=== PATIENT | female | born 1960 | race Caucasian/White ===

== ENCOUNTER 2018-03-13 07:08 | Emergency (ER) | payer OTHER ==
[~2018-03-13 07:08] MED LIST: ASPIRIN81 M4 PO; ATENOLOL25 M1 PO; ATORVASTATIN CA20 M1 PO; FOSAMAX70 M1 PO; MAALOX ADVANCE355 M2 PO; OMEGA 3-6-9 11200 MG PO; ONE-A-DAY ESSE1 EACH PO; PROTONIX40 M3 PO
--- NOTE | 2018-03-13 07:32 | ED CARDIAC/CP/PALPITATIONS ---
History of Present Illness General Chief Complaint: Chest Pain Stated Complaint: BIBA RT SIDED CHEST PAIN Source: patient Exam Limitations: no limitations Vital Signs & Intake/Output Vital Signs & Intake/Output Vital Signs Date Time Temp Pulse Resp B/P B/P Pulse O2 O2 Flow FiO2 Mean Ox Delivery Rate 03/13 1342 98.7 64 18 94/51 98 Room Air 03/13 0726 18.0 61 18 117/57 97 Room Air Allergies Coded Allergies: diltiazem (From CARDIZEM) (Severe, RASH 04/06/17) Reconcile Medications Alendronate Sodium (Fosamax) 70 MG TABLET 1 TAB PO QW osteoporosis (Reported) in the morning, at least 30 minutes before the first food, beverage, or medication of the day Aspirin (Aspirin*) 81 MG TAB.CHEW 1 TAB PO DAILY cad (Reported) Atenolol 25 MG TABLET 1 TAB PO DAILY svt (Reported) Atorvastatin Calcium 20 MG TABLET 1 TAB PO DAILY hyperlipidemia (Reported) Fish Oil/Borage/Flax/Om3,6,9#1 (Milligan 3-6-9 1,200 MG Softgel) 1,200 MG CAPSULE 1 CAP PO DAILY supplement (Reported) Multivitamin (One-A-Day Essential) 1 EACH TABLET 1 TAB PO DAILY vit supplement (Reported) Pantoprazole Sodium (Protonix) 40 MG TABLET. 1 TAB PO BID GERD Take 1 tab 30 min before breakfast and 1 tab 30 min before dinner.. Triage Note: PT BIBA FROM HOME S/P C/O RIGHT CP x2 DAYS. PT THOUGHT IT MAY HAVE BEEN HEART BURN DUE TO HX OF GERD. ALSO C/O NAUSEA. HAS NO HX OF WA BUT DOES HAVE A HX OF SVT. HAD 1 NITRO, 4 BABY ASA, AND ZOFRAN ON ROUTE. AT BEDSIDE. Triage Nurses Notes Reviewed? yes HPI: Patient presents for evaluation of right-sided chest pain that began gradually 2 days ago. Patient states that the pain has been constant since onset and does not change with palpation and deep inspiration coughing or movement. The patient denies radiation of pain likewise denies diaphoresis or dyspnea. She denies any prior episodes of this nature. She states she was admitted however in February of last year for chest pain syndrome. No cause was elucidated at that time (patient had a stress test and echocardiogram). Pain is described as a nagging constant achy pain. The patient is feeling better after an aspirin and sublingual nitroglycerin prehospital. She states her pain is now minimal. She has a three quarters pack per day smoker but denies alcohol or drug use. Past history is pertinent for SVT. Past History Travel History Traveled to [place] past 21 day No Medical History Any Pertinent Medical History? 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 No Review of Systems Review of Systems Constitutional: Reports: no symptoms. EENTM: Reports: no symptoms. Respiratory: Reports: no symptoms. Cardiovascular: Reports: chest pain. GI: Reports: no symptoms. Genitourinary: Reports: no symptoms. Musculoskeletal: Reports: no symptoms. Skin: Reports: no symptoms. Neurological/Psychological: Reports: no symptoms. Hematologic/Endocrine: Reports: no symptoms. Immunologic/Allergic: Reports: no symptoms. All Other Systems: Reviewed and Negative Physical Exam Physical Exam Cardiovascular: see below Comments: Gen.: Well-nourished, well-developed, no acute respiratory distress. Head: Normocephalic, atraumatic. Eyes: Normal inspection bilaterally Ears: Normal inspection bilaterally Nose: Normal inspection Throat/mouth : Moist mucosa Neck: Supple, full range of motion, no goiter Heart: Regular rate and rhythm, no murmurs rubs or gallops Lungs: Clear to auscultation bilaterally with normal air entry Chest: Nontender Back: Normal range of motion Abdomen: Soft, mild epigastric tenderness that does not reproduce the pain of the chief complaint, nondistended, normal bowel sounds Extremities: Normal range of motion grossly, equal radial pulses, no cyanosis clubbing or edema Neurologic: Cranial nerves grossly intact, speech is clear Skin: warm and dry, no rashes in area of pain Psychiatric: Calm, cooperative, no apparent delusions or hallucinations Core Measures ACS in differential dx? No CVA/TIA Diagnosis No Sepsis Present: No Sepsis Focused Exam Completed? No Progress Differential Diagnosis: AMI, musculoskeletal pain, pneumonia, pneumothorax, pulmonary embolism, unstable angina, SHINGLES Plan of Care: Orders Procedure Date/time Status TROPONIN LEVEL 03/13 1130 Complete EKG 03/13 1130 Active Add-on Test (ER Only) 03/13 0744 Active XRY-CHEST XRAY, TWO VIEWS 03/13 729 Active Telemetry/Community Health Advisor 03/13 729 Active TROPONIN LEVEL 03/13 07 Complete MAGNESIUM 03/13 729 Complete COMPREHENSIVE METABOLIC PANEL 03/13 729 Complete CBC WITHOUT DIFFERENTIAL 03/13 729 Complete EKG 03/13 07 Active Laboratory Tests 03/13/18 1232: Troponin I < 0.01 03/13/18 0735: Anion Gap 5, Estimated GFR > 60, BUN/Creatinine Ratio 25.0, Glucose 98, Calcium 9.2, Magnesium 1.8, Total Bilirubin 0.2, AST 20, ALT 28, Alkaline Phosphatase 66 , Troponin I < 0.01, Total Protein 5.9 L, Albumin 3.6, Globulin 2.3, Albumin/ Globulin Ratio 1.6, CBC w Diff NO MAN DIFF REQ, RBC 4.07 L, MCV 97.6, MCH 33.0 H, MCHC 33.8, RDW 12.9, MPV 8.8, Gran % 55.7, Lymphocytes % 30.4, Monocytes % 10.2 H, Eosinophils % 2.9, Basophils % 0.8, Absolute Granulocytes 3.8, Absolute Lymphocytes 2.1, Absolute Monocytes 0.7 H, Absolute Eosinophils 0.2, Absolute Basophils 0.1 Diagnostic Imaging: Viewed by Me: Radiology Read. CXR Impression: no acute abnormality, hyperinflated Initial ED EKG: NSR, rate (60), no ST T wave changes Prior EKG: unchanged Repeat EKG: unchanged Comments: 03/13/2018 10:47:07 AM patient is feeling better and was able to sleep during her emergency department stay. I have just discussed her case with Dr. Crespo, who recommends a second EKG and troponin level. If these are stable and the patient can be seen in the office in follow-up for outpatient stress testing. 03/13/2018 11:11:11 AM I have updated Elise on my discussion with Dr. crespo. Departure Departure Disposition: HOME OR SELF CARE Condition: Stable Clinical Impression Primary Impression: Atypical chest pain Referrals: Phyllis ACE,José Miguel Gayle (PCP/Family) Additional Instructions: Rest, no exertion or heavy lifting. Ibuprofen 600 mg every 6-8 hours as needed for your pain. Follow-up with your departmental shipping clerk on Thursday for reevaluation. Notify your primary care doctor of this emergency department visit and treatment plan. Return if any concerns or sudden worsening. Please note that there might be incidental findings in your evaluation that are unrelated to the current emergency department visit. Please notify your primary care doctor about this emergency department visit in order to obtain and review all of the testing performed so that these incidental findings can be monitored as needed. If you had an x-ray performed, please understand that some fractures or other findings may not be seen on the initial set of x-rays. If your symptoms persist you might need a repeat set of x-rays to check for such a fracture. If you had a laceration evaluated, please understand that foreign bodies such as glass or wood may not be visible to the naked eye or on plain x-rays. If the wound becomes red, swollen, increasingly more painful or if there is any drainage from the wound, please have it reevaluated by a physician for the possibility of a retained foreign body. If you're unable to follow up as outlined in the discharge instructions please return to the emergency department. Thank you for choosing the [facility] Emergency Department for your care. It was a pleasure to serve you today. Benito Carrasco M.D. [facility] Departure Forms: Customer Survey General Discharge Information Critical Care Note Critical Care Note Critical Care Time: non-applicable
[2018-03-13 07:59] LABS: ABSOLUTE BASOPHIL COUNT 0.1 /CUMM (0.0-0.2); ABSOLUTE EOSINOPHIL COUNT 0.2 /CUMM (0.0-0.7); ABSOLUTE GRANULOCYTE CT 3.8 /CUMM (1.4-6.5); ABSOLUTE LYMPH COUNT 2.1 /CUMM (1.2-3.4); ABSOLUTE MONOCYTE COUNT 0.7 /CUMM (0.10-0.60); BASOPHIL % 0.8 % (0.0-2.0); EOSINOPHIL % 2.9 % (0-5); GRANULOCYTE % 55.7 % (42.2-75.2); HEMATOCRIT 39.7 % (37-47); MEAN CORPUSCULAR HGB CONC 33.8 G/DL (33.0-37.0); MEAN CORPUSCULAR VOLUME 97.6 FL (81.0-99.0); MEAN PLATELET VOLUME 8.8 FL (7.4-10.4); PLATELET COUNT 203 /CUMM (130-400); RBC DISTRIBUTION WIDTH 12.9 % (11.5-14.5); RED BLOOD CELL CT 4.07 /CUMM (4.20-5.40); WHITE BLOOD CELL COUNT 6.9 /CUMM (4.8-10.8)
[2018-03-13 13:42] VITALS: BP 94/51
--- NOTE | 2018-03-13 17:42 | RADIOLOGY REPORT ---
EXAMINATION: XR CHEST CLINICAL INFORMATION: Right chest pain COMPARISON: April 06, 2017 TECHNIQUE: 2 views of the chest were obtained. FINDINGS: There is hyperinflation lungs with flattening of the diaphragms. No significant pleural effusion identified with costophrenic angles and posterior sulcus blunted which may be related to minimal fluid or some pleural thickening. Apical pleural thickening is seen bilaterally. No acute parenchymal disease. No pneumothorax. Heart normal size. No evidence of pulmonary edema. IMPRESSION: COPD. No acute disease.
== END 2018-03-13 13:50 ==
LOC: ERH 07:08
PROVIDERS: Emergency Medicine
DX: R07.89 Other chest pain (principal); F17.200 Nicotine dependence, unspecified, uncomplicated; I47.1 Supraventricular tachycardia; K21.9 Gastro-esophageal reflux disease without esophagitis
CPT/HCPCS: 71046; 93005; 93010